=== PATIENT | female | born 1960 | race Two or more races ===

== ENCOUNTER → 2023-12-28 | Outpatient (CLI) | payer MEDICAID ==
[2023-12-28 06:30] LABS: Basophils # (auto) 0 10 ^3/uL (0-0.2); Basophils % (auto) 0.2 % (0.0-2.0); Eosinophils # (auto) 0 10 ^3/uL (0-0.8); Hematocrit 43.9 % (36.0-46.0); Hemoglobin 14.9 g/dL (12.2-16.2); Lymphocytes % (auto) 39.8 % (10.0-50.0); Mean Corpuscular Hemoglobin 28.9 pg (28.0-32.0); Mean Corpuscular Volume 85.1 fL (80.0-100.0); Monocytes # (auto) 0.4 10 ^3/uL (0-1.3); Monocytes % (auto) 7.3 % (0.0-12.0); Neutrophils # (auto) 2.6 10 ^3/uL (1.6-8.6); Neutrophils % (auto) 52.7 % (37.0-80.0); Nucleated Red Blood Cells % 0.2 %; Red Blood Cells 5.16 10^6/uL (4.0-5.20); Red Cell Distribution Width 12.8 % (11.8-14.3)
[2023-12-28 06:49] LABS: Urine Bacteria FEW /hpf (None Seen); Urine Blood Negative /uL (Negative); Urine Budding Yeast OCCASIONAL /hpf (None Seen); Urine Clarity Clear (Clear); Urine Color Yellow (Yellow); Urine Mucus FEW (None Seen); Urine Protein, UAD Negative (Negative); Urine Specific Gravity 1.025 (1.001-1.035); Urine Urobilinogen 3 mg/dL (Negative); Urine WBC 14 /hpf (0 - 5)
[2023-12-28 07:31] LABS: Alanine Aminotransferase 27 U/L (7-40); Albumin 4.3 g/dL (3.2-4.8); Alkaline Phosphatase 117 U/L (46-116); Anion Gap 4 (5-15); Aspartate Aminotransferase 10 U/L (13-40); BUN/Creatinine Ratio 9.5 (10.0-20.0); Bilirubin, Total 1.3 mg/dL (0.2-1.0); Blood Urea Nitrogen 7 mg/dL (9-23); Calcium 9.5 mg/dL (8.5-10.1); Carbon Dioxide 29 mmol/L (20-30); Chloride 103 mmol/L (98-107); Cholesterol 207 mg/dL (< 200); Glucose 316 mg/dL (74-106); HDL Cholesterol 63 mg/dL (40-59); LDL Cholesterol 141 mg/dL (< 100); Sodium 136 mmol/L (136-145); Total Protein 6.9 g/dL (5.7-8.2); Triglycerides 142 mg/dL (< 150)
== END | disposition home or self-care (01) ==
LOC: LAB 06:12
PROVIDERS: ATTEND Nurse Practitioner Family
DX: R73.9 Hyperglycemia, unspecified (principal); F41.9 Anxiety disorder, unspecified; E66.01 Morbid (severe) obesity due to excess calories
CPT/HCPCS: 36415; 80053; 80061; 81001; 82043; 82306; 83036; 84439; 84443; 85025

== ENCOUNTER 2025-01-20 07:46 | Outpatient (CLI) | payer MEDICAID ==
[2025-01-20 08:31] LABS: Hematocrit 43.6 % (36.0-46.0); Hemoglobin 15.0 g/dL (12.2-16.2); Mean Corpuscular Hemoglobin 29.3 pg (28.0-32.0); Mean Corpuscular Volume 85.2 fL (80.0-100.0); Nucleated Red Blood Cells % 0.2 %
[2025-01-20 09:16] LABS: Alanine Aminotransferase 28 U/L (7-40); Albumin 4.5 g/dL (3.2-4.8); Alkaline Phosphatase 107 U/L (46-116); Anion Gap 6 (5-15); BUN/Creatinine Ratio 15.4 (10.0-20.0); Bilirubin, Total 1.2 mg/dL (0.2-1.0); Blood Urea Nitrogen 12 mg/dL (9-23); Calcium 9.9 mg/dL (8.7-10.4); Carbon Dioxide 30 mmol/L (20-31); Chloride 105 mmol/L (98-107); Cholesterol 150 mg/dL (< 200); Potassium 4.7 mmol/L (3.5-5.1); Sodium 141 mmol/L (136-145); Total Protein 7.1 g/dL (5.7-8.2); Triglycerides 102 mg/dL (< 150)
[2025-01-20 09:17] LABS: Glucose 115 mg/dL (74-106); HDL Cholesterol 64 mg/dL (40-59); Microalb/Creat Ratio, Urine 6.0
== END 2025-01-20 17:00 | disposition home or self-care (01) ==
LOC: LAB 07:46
PROVIDERS: ATTEND Nurse Practitioner Family
DX: E11.65 Type 2 diabetes mellitus with hyperglycemia (principal); E55.9 Vitamin D deficiency, unspecified; Z00.01 Encounter for general adult medical examination with abnormal findings
CPT/HCPCS: 36415; 80053; 80061; 82043; 82306; 82570; 83036; 84443; 85025